=== PATIENT | male | born 1995 | race Caucasian/White ===

== ENCOUNTER 2017-01-20 14:59 | Emergency (ER) | payer BC, OTHER ==
[~2017-01-20] VITALS: Ht 182.9 cm; Wt 106.6 kg
[~2017-01-20 14:59] MED LIST: CIPR-255 PO
[2017-01-20 15:02] VITALS: Ht 182.9 cm; Wt 106.6 kg
[2017-01-20] MEDS ORDERED: EPP3/2 IM (15:36)
--- NOTE | 2017-01-20 15:44 | DIAGNOSTIC IMAGING REPORT ---
RIGHT FOOT 3 VIEWS HISTORY: right foot pain, injury Right COMPARISON: None. FINDINGS: There is no fracture or dislocation. Soft tissues are unremarkable. No radiopaque foreign bodies. IMPRESSION: No fractures. Electronically signed by: Uli Medeiros M.D. 01/20/2017 3:43 PM Dictated Date/Time: 01/20/2017 3:41 PM
[2017-01-20 16:00] VITALS: BP 145/74; PULSE 88; TEMP 36.8; O2SAT 97
--- NOTE | 2017-01-20 16:00 | EMERGENCY ROOM VISIT NOTE ---
ED Visit Note First contact with patient: 15:05 CHIEF COMPLAINT: Foot pain HISTORY OF PRESENT ILLNESS: This 21-year-old male patient presents to the emergency department ambulatory complaining of swelling and pain in the right foot. The patient reports that he dropped a steel container on his right foot while at work. The patient rates the pain as sharp and 6/10. The patient has not take any medication for relief of the pain. The patient is able to walk. No numbness or weakness. No ankle pain. There are no lacerations of the foot. The patient is able to move all of their toes and their ankle without pain. No previous fracture to this foot. REVIEW OF SYSTEMS: GENERAL: A 6 system review of systems was completed with positives and pertinent negatives in the HPI. ALLERGIES: Bee stings MEDICATIONS: No chronic medications PMH: No significant past medical history. SOCIAL HISTORY: The patient lives locally with family. PHYSICAL EXAM: Vital Signs: Reviewed Nurse's notes, vital signs stable. GENERAL : This is a 21-year-old male, in no acute distress, but appears in pain, well- developed, well-nourished. MUSCULOSKELETAL: There is no visual deformity of the right foot. There is no erythema or ecchymosis. There is a small abrasion to the lateral aspect of the foot. There is no warmth. There is tenderness and swelling over the dorsolateral aspect of the right foot. There is no tenderness over the lateral or medial malleolus. No tenderness of the tib/fib. The range of motion of the ankle and toes are full. There is no tenderness over the plantar fascia. The skin is intact and there are no lacerations or puncture wounds. Dorsalis pedis pulse 2+. Capillary refill less than 2 seconds. RADIOGRAPHIC FINDINGS: RIGHT FOOT 3 VIEWS HISTORY: right foot pain, injury Right COMPARISON: None. FINDINGS: There is no fracture or dislocation. Soft tissues are unremarkable. No radiopaque foreign bodies. IMPRESSION: No fractures. EMERGENCY DEPARTMENT COURSE: I examined the patient. An X-ray of the right foot was reviewed by myself and radiology and reveals no acute fractures. The patient was placed in a postop shoe. Conservative measures were discussed. The patient verbalized understanding of my assessment and treatment plan. The patient was discharged home in good condition. DIAGNOSIS: Foot contusion Current/Historical Medications Scheduled Epinephrine (Epipen), 0.3 MG IM UD Allergies Uncoded Allergies: BEE STINGS (Allergy, Severe, ANAPHYLAXIS, 01/20/17) Vital Signs Date Time Temp Pulse Resp B/P Pulse Ox O2 Delivery O2 Flow Rate FiO2 01/20/17 16:00 36.8 88 16 145/74 97 01/20/17 15:02 36.8 88 16 145/74 97 Room Air Departure Information Impression Primary Impression: Contusion of foot Dispostion Home / Self-Care Condition GOOD Referrals No Doctor, Assigned (PCP) Patient Instructions My [facility] Additional Instructions You have been treated in the Emergency Department for foot injury. For pain control, you can use the following [id number] medicines (if >12 yo): - Regular strength (325mg/tab) Tylenol (acetaminophen) 2 tabs every 4-6 hours as needed. Do not exceed 12 tablets in a 24 hour period. Avoid taking more than 4 grams (4000 mg) of Tylenol per day. This includes any other sources of acetaminophen you may take on a regular basis. - Regular strength (200 mg/tab) Advil (ibuprofen) 1-2 tabs every 4-6 hours as needed. Do not exceed a dose of 3200 mg per day. If this is a recent injury (<24 hrs), ice can be applied to the area of pain for the first 3 days to help decrease pain and inflammation. Wear the postoperative shoe for the next 2-3 days, then as needed for pain or difficulty walking. Follow-up with orthopedics or your primary care provider if there is continued pain in the foot in 5-6 days. Return to the Emergency Department if your current symptoms worsen despite treatment course outlined above, or if you develop any of the following symptoms : intractable pain despite aforementioned treatment course or new onset of numbness or tingling of the foot.
== END 2017-01-20 16:00 | disposition home or self-care (01) ==
LOC: MERGE 15:00 → C.EDB 15:00 → C.EDD 16:00
DX: S90.31XA Contusion of right foot, initial encounter (principal); W20.8XXA Other cause of strike by thrown, projected or falling object, initial encounter; Y92.89 Other specified places as the place of occurrence of the external cause; Y99.0 Civilian activity done for income or pay; Z91.030 Bee allergy status